=== PATIENT | male | born 1995 | race Two or more races ===

== ENCOUNTER 2020-04-30 13:33 | Emergency (ER) | payer MEDICAID, SELFPAY ==
[~2020-04-30] VITALS: Ht 172.7 cm; Wt 88.0 kg
--- NOTE | 2020-04-30 13:45 | NUR ---
CARDIAC & VS MONITORING IN PROGRESS. SIDE RAILS UP X2. PT ASLEEP IN RT LAT POSITION, SNORING RESP (EVEN & UNLABORED)
--- NOTE | 2020-04-30 13:50 | NUR ---
DR BAZAN BS FOR EXAM
--- NOTE | 2020-04-30 14:12 | NUR ---
TO CT PER RADHA
[2020-04-30 14:22] LABS: BASOPHILS % (AUTO) 1 % (0-1); EOSINOPHILS % (AUTO) 2 % (1-7); LYMPHOCYTES % (AUTO) 32 % (22-44); MEAN CORPUSCULAR HEMOGLOBIN 32.2 pg (27.5-34.5); MEAN CORPUSCULAR HGB CONC 33.5 g/dL (33.2-36.2); MEAN PLATELET VOLUME 8.4 fL (7.4-10.4); MONOCYTES % (AUTO) 11 % (2-9); NEUTROPHILS % (AUTO) 55 % (42-75); PLATELET COUNT 229 x10^3/uL (130-400); RED BLOOD COUNT 4.87 x10^6/uL (4.38-5.82); RED CELL DISTRIBUTION WIDTH 14.3 % (9.4-14.8)
[2020-04-30 14:23] LABS: MD NO
[2020-04-30 14:32] LABS: ALANINE AMINOTRANSFERASE 31 U/L (12-78); ALBUMIN 3.8 g/dL (3.4-5.0); ANION GAP 7 mmol/L (5-15); CALCIUM 7.9 mg/dL (8.5-10.1); CHLORIDE 114 mmol/L (98-107); CREATININE 0.93 mg/dL (0.7-1.3)
[2020-04-30 14:34] LABS: ALKALINE PHOSPHATASE 44 U/L (45-117); BILIRUBIN,TOTAL 0.3 mg/dL (0.2-1.0); TOTAL PROTEIN 7.9 g/dL (6.4-8.2)
--- NOTE | 2020-04-30 15:28 | NUR ---
PT ASLEEP IN RT LATERAL POSITION, SNORING RESP - EVEN & UNLABORED, VS & CARDIAC MONITORING CONTINUING, SIDE RAILS UP X2. URINAL EMPTIED OF 500ML: SPECIMEN OBTAINED.
--- NOTE | 2020-04-30 16:30 | NUR ---
PT ASLEEP IN PRONE POSITION; EVEN RESP NOTED.
--- NOTE | 2020-04-30 17:48 | NUR ---
PT ASLEEP IN PRONE POSITION W/ BP CUFF AGAIN OFF HIS ARM. PT ROLLED ONTO BACK, FOLLOWING INSTRUCTIONS.
[2020-04-30 17:49] VITALS: BP 155/110
--- NOTE | 2020-04-30 17:52 | NUR ---
PT EASILY AWAKENED; INFORMED OF PENDING DC. PT CALLED FRIEND FOR TRANSPORT HOME. Addendum: 04/30/20 at 1756 by REJI SIDE RAILS UP X2. URINAL W/IN REACH
== END 2020-04-30 18:59 | disposition home or self-care (01) ==
LOC: ED 14:00
DX: F10.220 Alcohol dependence with intoxication, uncomplicated (principal); F14.20 Cocaine dependence, uncomplicated; R51.9 Headache, unspecified; Y90.0 Blood alcohol level of less than 20 mg/100 ml
CPT/HCPCS: 36415; 70450; 80053; 80320; 85025; 99284; G0480